=== PATIENT | female | born 1960 | race Caucasian/White ===

== ENCOUNTER 2022-02-01 08:18 | Inpatient (IN) | payer MEDICAID ==
[~2022-02-01] VITALS: Ht 167.6 cm; Wt 75.0 kg
[~2022-02-01 08:18] MED LIST: CYCL-1 PO
[2022-02-01 09:18] LABS: BASOPHILS % (AUTO) 0.6 % (0-1); EOSINOPHILS # (AUTO) 0.2 X10'3 (0-0.9); EOSINOPHILS % (AUTO) 4.5 % (0-6); HEMATOCRIT 42.4 % (35.0-45.0); LYMPHOCYTES # (AUTO) 2.3 X10'3 (1.1-4.8); LYMPHOCYTES % (AUTO) 42.8 % (21-51); MEAN CORPUSCULAR HEMOGLOBIN 33.6 PG (27.0-31.0); MEAN CORPUSCULAR HGB CONC 33.1 g/dL (33.0-36.5); MEAN CORPUSCULAR VOLUME 101.6 FL (78-98); MEAN PLATELET VOLUME 7.9 FL (7.4-10.4); MONOCYTES # (AUTO) 0.3 X10'3 (0-0.9); MONOCYTES % (AUTO) 6.6 % (2-12); NEUTROPHILS # (AUTO) 2.4 X10'3 (1.8-7.7); NEUTROPHILS % (AUTO) 45.5 % (42-75); PLATELET COUNT 147 X10'3 (140-440); RED BLOOD COUNT 4.17 X10'6 (4.20-5.60); RED CELL DISTRIBUTION WIDTH 13.4 % (11.5-14.5); WHITE BLOOD COUNT 5.3 X10'3 (4.5-11.0)
[2022-02-01] MEDS ORDERED: heparin 10,000 units/1 ML INJ IV ONE ×2 (09:45)
[2022-02-01] MEDS: heparin 25,000 UNIT/250ml bag 250 ML IV PRN ×2 (10:26→18:20)
[2022-02-01 10:31] LABS: ALANINE AMINOTRANSFERASE 63 U/L (12-78); ALBUMIN 3.6 G/DL (3.4-5.0); ALKALINE PHOSPHATASE 104 IU/L (46-116); ANION GAP 12 (8-16); ASPARTATE AMINO TRANSFERASE 36 U/L (10-37); BILIRUBIN,TOTAL 0.4 MG/DL (0.1-1.0); BLOOD UREA NITROGEN 19 MG/DL (7-18); CHLORIDE 104 MMOL/L (99-107); GLUCOSE 294 MG/DL (70-104); POTASSIUM 3.5 MMOL/L (3.5-5.1); SODIUM 138 MMOL/L (135-145); TOTAL CARBON DIOXIDE 21.7 MMOL/L (24-32); TOTAL PROTEIN 7.2 G/DL (6.4-8.2)
[2022-02-01 10:37] LABS: BUN/CREATININE RATIO 18.3 (6.6-38.0); CREATININE 1.04 MG/DL (0.40-0.90); eGFR 54 ML/MIN
[2022-02-01] MEDS ORDERED: potassium Cl 20 mEq SR tablet PO PRN ×2 (11:10)
[2022-02-01] MEDS ORDERED: PERFLUTREN PROTEIN-A MICROSPHR (Optison) 0.22 MG/ML 3ML VIAL IV ONE (11:10)
[2022-02-01] MEDS ORDERED: morphine 2 MG/ML inj. syringe IV PRN ×2 (11:10)
[2022-02-01] MEDS ORDERED: acetaminophen 325mg tablet PO PRN (11:10)
[2022-02-01] MEDS ORDERED: potassium Cl 40MEQ/1/2NS 520ml 520 ML IV PRN (11:10)
[2022-02-01] MEDS ORDERED: magnesium Cl slow-release 64mg tablet PO PRN (11:10)
[2022-02-01] MEDS ORDERED: magnesium 4gm in 100ml NS 100 ML IV PRN (11:10)
[2022-02-01] MEDS ORDERED: magnesium hydroxide 30ml (MOM) UD suspension PO PRN (11:10)
[2022-02-01] MEDS ORDERED: mag hydrox/Alum hydrox/simeth 30ml oral suspension PO PRN (11:10)
[2022-02-01] MEDS ORDERED: ondansetron/PF 4mg/2ml inj IV PRN (11:10)
[2022-02-01] MEDS: normal saline 1000ml 1,000 ML IV SCH ×2 (11:26→20:38)
[2022-02-01 12:07] LABS: APTT 115 SECONDS (22-32)
[2022-02-01] MEDS ORDERED: IBUP-1985 PO (12:25)
--- NOTE | 2022-02-01 12:32 | NUR ---
heparin drip stopped due to high ptt, will get new lab draw since lab was drawn after heparin bolus and infusion started due to initial ptt being clotted.
--- NOTE | 2022-02-01 12:35 | NUR ---
PAGER ID: [phone] MESSAGE: tadeo Espinoza in ed 5 trop [id number] Janice Zapata
--- NOTE | 2022-02-01 12:38 | NUR ---
PAGER ID: [phone] MESSAGE: tadeo burnette in ED 5 current trop is [id number]. Janice RIOS
[2022-02-01 12:56] LABS: APTT 64 SECONDS (22-32)
[2022-02-01 18:04] LABS: APTT 32 SECONDS (22-32)
[2022-02-01] MEDS: K and/or MAG REPLACEMENT MC SCH (18:14)
[2022-02-01] MEDS: heparin 10,000 units/1 ML INJ IV PRN (18:22)
[2022-02-01 19:25] VITALS: BP 124/69
[2022-02-01] MEDS: docusate sod 100mg capsule PO SCH (20:00)
--- NOTE | 2022-02-01 20:00 | NUR ---
oriented pt to room 4015B. call light in reach. pt has room phone within reach and TV. water provided. educated on NPO after midnight.
[2022-02-01] MEDS: carVEDilol 3.125mg tablet PO SCH (20:35)
[2022-02-01] MEDS ORDERED: atorvastatin 20mg tablet PO SCH (21:00)
--- NOTE | 2022-02-01 22:43 | NUR ---
pt states "why would I take morphine if ibuprofen and tylenol take care of all my shoulder pain"
[2022-02-01 22:59] VITALS: BP 101/38
[2022-02-01 23:00] VITALS: BP 113/59
--- NOTE | 2022-02-01 23:09 | NUR ---
pt had 9 beat run of [facility]. pt states she accidently inhaled some spit and was coughing possibly at that time. no chest pain. VSS.
[2022-02-02] VITALS (10 sets, daily range): BP systolic 96–124; BP diastolic 46–73
[2022-02-02 01:09] LABS: APTT 37 SECONDS (22-32)
[2022-02-02] MEDS: heparin 10,000 units/1 ML INJ IV PRN (01:17)
--- NOTE | 2022-02-02 06:25 | NUR ---
reported to days. noted pt will need saline and heparin soon to replace bags.
--- NOTE | 2022-02-02 07:04 | NUR ---
Patient in room PCU 3015. I have received report from GABRIEL Atkins and had the opportunity to ask questions and assume patient care.
[2022-02-02] MEDS: normal saline 1000ml 1,000 ML IV SCH (07:10)
[2022-02-02 07:17] LABS: ALBUMIN 2.9 G/DL (3.4-5.0); ANION GAP 11 (8-16); BLOOD UREA NITROGEN 13 MG/DL (7-18); BUN/CREATININE RATIO 17.3 (6.6-38.0); CALCIUM 8.2 MG/DL (8.5-10.1); CHLORIDE 107 MMOL/L (99-107); CREATININE 0.75 MG/DL (0.40-0.90); GLUCOSE 128 MG/DL (70-104); POTASSIUM 4.1 MMOL/L (3.5-5.1); SODIUM 140 MMOL/L (135-145); TOTAL CARBON DIOXIDE 21.9 MMOL/L (24-32); eGFR 78 ML/MIN
[2022-02-02 07:18] LABS: BASOPHILS # (AUTO) 0.1 X10'3 (0-0.2); BASOPHILS % (AUTO) 1.1 % (0-1); EOSINOPHILS # (AUTO) 0.3 X10'3 (0-0.9); EOSINOPHILS % (AUTO) 4.3 % (0-6); HEMATOCRIT 41.4 % (35.0-45.0); HEMOGLOBIN 14.2 g/dl (12.0-16.0); LYMPHOCYTES # (AUTO) 3.1 X10'3 (1.1-4.8); LYMPHOCYTES % (AUTO) 50.5 % (21-51); MEAN CORPUSCULAR HEMOGLOBIN 34.4 PG (27.0-31.0); MEAN CORPUSCULAR HGB CONC 34.4 g/dL (33.0-36.5); MEAN CORPUSCULAR VOLUME 100.1 FL (78-98); MEAN PLATELET VOLUME 8.4 FL (7.4-10.4); MONOCYTES # (AUTO) 0.4 X10'3 (0-0.9); MONOCYTES % (AUTO) 6.9 % (2-12); NEUTROPHILS # (AUTO) 2.3 X10'3 (1.8-7.7); NEUTROPHILS % (AUTO) 37.2 % (42-75); PLATELET COUNT 155 X10'3 (140-440); RED BLOOD COUNT 4.13 X10'6 (4.20-5.60); RED CELL DISTRIBUTION WIDTH 13.3 % (11.5-14.5)
[2022-02-02 07:34] LABS: CHOL/HDL RATIO 4.2 (0.00-4.99); CHOLESTEROL 191 MG/DL (0-200); HDL CHOLESTEROL 45 MG/DL (35-60); LDL CHOLESTEROL 121 MG/DL (50-100); TRIGLYCERIDES 117 MG/DL (20-135)
--- NOTE | 2022-02-02 07:38 | NUR ---
PAGER ID: [phone] MESSAGE: [phone] Re: Lorenza Romero room 3015B - Critical trop 2069 (trending down
[2022-02-02] MEDS ORDERED: aspirin 81mg, enteric-coated 1 TAB TABLET.DR PO SCH (08:00)
[2022-02-02] MEDS: K and/or MAG REPLACEMENT MC SCH (08:00)
[2022-02-02] MEDS: docusate sod 100mg capsule PO SCH (08:00)
[2022-02-02] MEDS: heparin 25,000 UNIT/250ml bag 250 ML IV PRN (08:16)
[2022-02-02] MEDS: carVEDilol 3.125mg tablet PO SCH (08:17)
[2022-02-02] MEDS ORDERED: metoprolol tartrate 1mg/ml inj IV PRN (09:00)
[2022-02-02] MEDS ORDERED: aminophylline 500mg/20ml vial IV PRN (09:00)
[2022-02-02] MEDS ORDERED: nitroGLYCERIN 0.4mg SUBLingual tab SL PRN (09:00)
[2022-02-02] MEDS ORDERED: regadenoson 0.4mg/5ml syringe IV PRN (09:00)
--- NOTE | 2022-02-02 13:32 | NUR ---
PAGER ID: [phone] MESSAGE: Bee [phone] RE: Lorenza Romero room 3015B - Can she have food or still NPO? Also, patient states she is feeling fine and would like to go home.
[2022-02-02] MEDS ORDERED: ATOR20TA66 PO (13:50)
[2022-02-02] MEDS ORDERED: ASPI81TA52 PO (13:50)
[2022-02-02] MEDS ORDERED: COR3.125T PO (13:50)
--- NOTE | 2022-02-02 14:49 | NUR ---
Patient was discharged at 1449 with instructions and verbalizing understanding of instructions, in wheelchair accompanied by nursing staff and family going home via private vehicle. All lines and tubes including PIV with cannula intact and tele monitor were removed. Education has been provided at bedside and all questions have been answered. Patient will make her own follow up appointment. Patient is stable and appropriate for discharge.
== END 2022-02-02 15:02 | disposition home or self-care (01) | DRG 190 ==
LOC: ER 08:18 → ED HOLD 11:10 → PCU 3S 19:14
PROVIDERS: ADMIT Family Medicine; ATTEND Family Medicine
PROC: 4A02XM4 Measurement of Cardiac Total Activity, External Approach (ICD-10-PCS; principal; 2022-02-02)
PROC: 3E033HZ Introduction of Radioactive Substance into Peripheral Vein, Percutaneous Approach (ICD-10-PCS; 2022-02-02)
DX: I21.4 Non-ST elevation (NSTEMI) myocardial infarction (principal); F12.90 Cannabis use, unspecified, uncomplicated; F17.210 Nicotine dependence, cigarettes, uncomplicated; F41.0 Panic disorder [episodic paroxysmal anxiety]; M25.511 Pain in right shoulder; R06.4 Hyperventilation; G89.29 Other chronic pain; I10 Essential (primary) hypertension; Z79.82 Long term (current) use of aspirin; Z83.3 Family history of diabetes mellitus; Z56.0 Unemployment, unspecified; Z79.899 Other long term (current) drug therapy; Z90.49 Acquired absence of other specified parts of digestive tract; Z71.6 Tobacco abuse counseling
CPT/HCPCS: 36415; 71045; 78452; 80048; 80053; 80061; 83735; 83880; 84484; 85007; 85025; 85610; 85730; 87081; 93005; 93017; 93306; 96374; 99285; 99291; A9500; G0378; J1644; J2785; J7030

== ENCOUNTER 2022-02-05 12:41 | Inpatient (IN) | payer MEDICAID ==
[~2022-02-05] VITALS: Ht 167.6 cm; Wt 90.9 kg
[~2022-02-05 12:41] MED LIST changes: +ASPI81TA52 PO; +ATOR20TA66 PO; +COR3.125T PO; -CYCL-1 PO
[2022-02-05 13:26] LABS: BASOPHILS % (AUTO) 0.8 % (0-1); EOSINOPHILS # (AUTO) 0.2 X10'3 (0-0.9); EOSINOPHILS % (AUTO) 4.5 % (0-6); HEMATOCRIT 42.2 % (35.0-45.0); HEMOGLOBIN 14.3 g/dl (12.0-16.0); LYMPHOCYTES # (AUTO) 2.2 X10'3 (1.1-4.8); LYMPHOCYTES % (AUTO) 40.3 % (21-51); MEAN CORPUSCULAR HEMOGLOBIN 33.7 PG (27.0-31.0); MEAN CORPUSCULAR HGB CONC 33.9 g/dL (33.0-36.5); MEAN CORPUSCULAR VOLUME 99.6 FL (78-98); MEAN PLATELET VOLUME 7.9 FL (7.4-10.4); MONOCYTES # (AUTO) 0.4 X10'3 (0-0.9); NEUTROPHILS # (AUTO) 2.6 X10'3 (1.8-7.7); NEUTROPHILS % (AUTO) 46.4 % (42-75); PLATELET COUNT 170 X10'3 (140-440); RED BLOOD COUNT 4.24 X10'6 (4.20-5.60); RED CELL DISTRIBUTION WIDTH 13.3 % (11.5-14.5); WHITE BLOOD COUNT 5.6 X10'3 (4.5-11.0)
[2022-02-05 13:40] LABS: ALANINE AMINOTRANSFERASE 56 U/L (12-78); ALBUMIN 3.5 G/DL (3.4-5.0); ALKALINE PHOSPHATASE 106 IU/L (46-116); ANION GAP 12 (8-16); ASPARTATE AMINO TRANSFERASE 39 U/L (10-37); BILIRUBIN,TOTAL 0.4 MG/DL (0.1-1.0); BLOOD UREA NITROGEN 14 MG/DL (7-18); BUN/CREATININE RATIO 17.1 (6.6-38.0); CALCIUM 9.1 MG/DL (8.5-10.1); CHLORIDE 104 MMOL/L (99-107); CREATININE 0.82 MG/DL (0.40-0.90); GLUCOSE 176 MG/DL (70-104); POTASSIUM 3.9 MMOL/L (3.5-5.1); SODIUM 138 MMOL/L (135-145); TOTAL CARBON DIOXIDE 22.3 MMOL/L (24-32); eGFR 71 ML/MIN
[2022-02-05] MEDS ORDERED: acetaminophen 325mg tablet PO PRN (14:40)
[2022-02-05] MEDS ORDERED: normal saline 1000ml 1,000 ML IV SCH (14:40)
[2022-02-05] MEDS ORDERED: ondansetron/PF 4mg/2ml inj IV PRN (14:40)
[2022-02-05] MEDS ORDERED: potassium Cl 20 mEq SR tablet PO PRN ×2 (14:40)
[2022-02-05] MEDS ORDERED: magnesium Cl slow-release 64mg tablet PO PRN (14:40)
[2022-02-05] MEDS ORDERED: magnesium 4gm in 100ml NS 100 ML IV PRN (14:40)
[2022-02-05] MEDS ORDERED: potassium Cl 40MEQ/1/2NS 520ml 520 ML IV PRN (14:40)
[2022-02-05] MEDS ORDERED: morphine 2 MG/ML inj. syringe IV PRN (14:40)
[2022-02-05 14:56] LABS: MAGNESIUM 1.8 MG/DL (1.5-2.4)
[2022-02-05] MEDS ORDERED: iohexol 350MG/ML 100ml bottle IV ONE (15:02)
[2022-02-05 17:27] VITALS: BP 162/68
[2022-02-05] MEDS ORDERED: heparin 10,000 units/1 ML INJ IV PRN (18:25)
[2022-02-05] MEDS ORDERED: heparin 10,000 units/1 ML INJ IV ONE (18:25)
[2022-02-05] MEDS ORDERED: nitroGLYCERIN 1gm ointment UD TP ONE (18:29)
[2022-02-05] MEDS ORDERED: heparin 25,000 UNIT/250ml bag 250 ML IV PRN (18:34)
[2022-02-05 18:59] LABS: BASOPHILS # (AUTO) 0.1 X10'3 (0-0.2); BASOPHILS % (AUTO) 0.8 % (0-1); EOSINOPHILS # (AUTO) 0.3 X10'3 (0-0.9); EOSINOPHILS % (AUTO) 3.5 % (0-6); HEMATOCRIT 46.1 % (35.0-45.0); HEMOGLOBIN 15.7 g/dl (12.0-16.0); LYMPHOCYTES # (AUTO) 3.1 X10'3 (1.1-4.8); LYMPHOCYTES % (AUTO) 40.3 % (21-51); MEAN CORPUSCULAR HEMOGLOBIN 33.8 PG (27.0-31.0); MEAN CORPUSCULAR VOLUME 99.5 FL (78-98); MONOCYTES # (AUTO) 0.5 X10'3 (0-0.9); MONOCYTES % (AUTO) 6.3 % (2-12); NEUTROPHILS # (AUTO) 3.7 X10'3 (1.8-7.7); NEUTROPHILS % (AUTO) 49.1 % (42-75); PLATELET COUNT 192 X10'3 (140-440); RED BLOOD COUNT 4.63 X10'6 (4.20-5.60); RED CELL DISTRIBUTION WIDTH 13.1 % (11.5-14.5); WHITE BLOOD COUNT 7.6 X10'3 (4.5-11.0)
[2022-02-05 19:28] LABS: APTT 25 SECONDS (22-32)
--- NOTE | 2022-02-05 19:45 | NUR ---
DR DAVILA CALLED. LEFT . PT REQUESTED TO LEAVE
[2022-02-05] MEDS ORDERED: docusate sod 100mg capsule PO SCH (20:00)
[2022-02-05] MEDS ORDERED: K and/or MAG REPLACEMENT MC SCH (20:00)
--- NOTE | 2022-02-05 20:50 | NUR ---
AWARE OF PT REQUEST TO LEAVE. STATED AMA TO INCLUDE PT SERVITY MY INCLUDE . PT AWARE OF STATUS IV DC'D DRESSING APPLIED PT LEAVING PT STATED SHE WAS GOING TO FALLOW UP WITH POLICE PATROL OFFICER IN THE AM.
== END 2022-02-05 21:20 | disposition left against medical advice (07) | DRG 198 ==
LOC: ER 12:41 → ED HOLD 14:43 → EDBEDREQ 19:09
PROVIDERS: ADMIT Internal Medicine; ATTEND Internal Medicine
PROC: B32T1ZZ Computerized Tomography (CT Scan) of Left Pulmonary Artery using Low Osmolar Contrast (ICD-10-PCS; principal; 2022-02-05)
PROC: B3201ZZ Computerized Tomography (CT Scan) of Thoracic Aorta using Low Osmolar Contrast (ICD-10-PCS; 2022-02-05)
PROC: B32S1ZZ Computerized Tomography (CT Scan) of Right Pulmonary Artery using Low Osmolar Contrast (ICD-10-PCS; 2022-02-05)
DX: R07.89 Other chest pain (principal); I25.2 Old myocardial infarction; R77.8 Other specified abnormalities of plasma proteins; Z53.29 Procedure and treatment not carried out because of patient's decision for other reasons; Z56.0 Unemployment, unspecified; Z79.899 Other long term (current) drug therapy; Z79.82 Long term (current) use of aspirin
CPT/HCPCS: 36415; 71045; 71275; 80053; 83735; 83880; 84484; 85025; 85610; 85730; 93005; 99285; G0378; J3490; J7030; Q9967